=== PATIENT | male | born 1950 ===

== ENCOUNTER 2017-11-06 14:30 | Inpatient (IN) | payer OTHER ==
[~2017-11-06] VITALS: Ht 182.9 cm; Wt 122.0 kg
== END 2017-11-15 12:47 | disposition home or self-care (01) | DRG 708 ==
LOC: O/R 11-13 05:43 → SURH 11-13 05:43
PROVIDERS: Urology
PROC: 07TC0ZZ Resection of Pelvis Lymphatic, Open Approach (ICD-10-PCS; 2017-11-13)
PROC: 0VT30ZZ Resection of Bilateral Seminal Vesicles, Open Approach (ICD-10-PCS; 2017-11-13)
PROC: 0VT00ZZ Resection of Prostate, Open Approach (ICD-10-PCS; principal; 2017-11-13 07:00)
DX: C61 Malignant neoplasm of prostate (principal); I10 Essential (primary) hypertension